=== PATIENT | male | born 1995 | race Caucasian/White ===

== ENCOUNTER 2016-05-26 09:28 | Emergency (ER) | payer BC ==
[2016-05-26] MEDS ORDERED: PREDNISONE 10 MG TAB ONE (10:04)
[2016-05-26] MEDS ORDERED: PREDNISONE 50 MG TAB ONE (10:04)
[2016-05-26] MEDS ORDERED: DIPHENHYDRAMINE 25 MG CAP ONE (10:04)
[2016-05-26] MEDS ORDERED: PEN G BENZ 1.2M UNITS/2 ML SYR IM ONE (11:05)
== END 2016-05-26 12:57 | disposition home or self-care (01) ==
LOC: ER 09:28
CPT/HCPCS: 87880; 96372